=== PATIENT | female | born 1965 | race Caucasian/White ===

== ENCOUNTER → 2019-04-20 | Outpatient (CLI) | payer BC ==
[~2019-04-20] MED LIST: AZULFIDINE500 MG PO; DILTIAZEM ER180 M2 PO; HYDRALAZINE 5050 MG PO; LIPITOR40 MG PO; LISINOPRIL2.5 MG PO; MAGNESIUM250 M1 PO; METFORMIN HCL500 M3 PO; PLAVIX 75 MG TA75 MG PO; PRADAXA150 MG PO; RESTORIL15 M1 PO; SYNTHROID125 MC1 PO; TIKOSYN250 MCG PO; TRAMADOL 50 MG50 MG PO; TRULICITY0.75 MG/0. SUBQ; ZOFRAN4 MG PO
[2019-04-20 09:56] LABS: HEMATOCRIT 38.1 % (37.0-47.0); HEMOGLOBIN 12.2 gm/dL (12.0-15.0); MCH 25.7 pg (26.0-34.0); MCHC 32.1 g/dL (28.0-37.0); MCV 80.1 fL (80.0-100.0); RBC 4.76 mil/uL (4.20-5.00); RDW 15.3 % (10.5-14.5); WBC 6.7 thou/uL (4.0-11.0)
[2019-04-20 10:10] LABS: ALBUMIN 4.1 g/dL (3.4-5.0); CALCIUM 9.6 mg/dL (8.5-10.1); CREATININE 1.3 mg/dL (0.6-1.0); POTASSIUM 3.9 mmol/L (3.5-5.1); TOTAL BILIRUBIN 0.3 mg/dL (<0.1-1.0); TOTAL PROTEIN 7.9 g/dL (6.4-8.2)
== END ==
LOC: CAT 09:15
PROVIDERS: Internal Medicine Cardiovascular Disease
DX: I48.91 Unspecified atrial fibrillation (principal); I25.10 Atherosclerotic heart disease of native coronary artery without angina pectoris; N28.1 Cyst of kidney, acquired; M47.814 Spondylosis without myelopathy or radiculopathy, thoracic region; K76.89 Other specified diseases of liver; Z90.49 Acquired absence of other specified parts of digestive tract

== ENCOUNTER 2019-04-27 06:22 | Observation (INO) | payer BC ==
[~2019-04-27] VITALS: Ht 172.7 cm; Wt 78.7 kg
[2019-04-27] VITALS (8 sets, daily range): BP systolic 119–172; BP diastolic 71–101
[2019-04-27] MEDS ORDERED: PRADAXA150 MG PO (06:57)
[2019-04-27] MEDS ORDERED: TIKOSYN250 MCG PO (06:58)
[2019-04-27] MEDS ORDERED: PLAVIX 75 MG TA75 MG PO (06:59)
[2019-04-27] MEDS ORDERED: LISINOPRIL2.5 MG PO (06:59)
[2019-04-27] MEDS ORDERED: HYDRALAZINE 5050 MG PO (07:01)
[2019-04-27] MEDS ORDERED: MAGNESIUM250 M1 PO (07:01)
[2019-04-27] MEDS ORDERED: DILTIAZEM ER180 M2 PO (07:02)
[2019-04-27] MEDS ORDERED: SYNTHROID125 MC1 PO (07:03)
[2019-04-27] MEDS ORDERED: LIPITOR40 MG PO (07:03)
[2019-04-27] MEDS ORDERED: TRULICITY0.75 MG/0. SUBQ (07:04)
[2019-04-27] MEDS ORDERED: METFORMIN HCL500 M3 PO (07:05)
[2019-04-27] MEDS ORDERED: AZULFIDINE500 MG PO (07:06)
[2019-04-27] MEDS ORDERED: ZOFRAN4 MG PO (07:06)
[2019-04-27] MEDS ORDERED: TRAMADOL 50 MG50 MG PO (07:07)
[2019-04-27] MEDS ORDERED: RESTORIL15 M1 PO (07:08)
[2019-04-27 07:13] LABS: ABSOLUTE NEUTROPHILS 3.7 thou/uL (1.4-8.2); BASOPHILS 0.7 % (0.0-2.0); EOSINOPHILS 2.5 % (0.0-3.0); HEMATOCRIT 34.4 % (37.0-47.0); HEMOGLOBIN 11.1 gm/dL (12.0-15.0); LYMPHOCYTES 32.2 % (24.0-44.0); MCH 25.9 pg (26.0-34.0); MCHC 32.4 g/dL (28.0-37.0); MCV 79.9 fL (80.0-100.0); MONOCYTES 8.7 % (1.0-8.0); PLATELET COUNT 343 thou/uL (150-400); POLYS 55.9 % (36.0-66.0); RDW 15.6 % (10.5-14.5); WBC 6.7 thou/uL (4.0-11.0)
[2019-04-27 07:26] LABS: ALBUMIN 3.7 g/dL (3.4-5.0); CALCIUM 9.1 mg/dL (8.5-10.1); CREATININE 1.3 mg/dL (0.6-1.0); PROTIME 10.5 Seconds (9.3-11.4); TOTAL BILIRUBIN 0.3 mg/dL (<0.1-1.0); TOTAL PROTEIN 7.1 g/dL (6.4-8.2)
[2019-04-27 07:30] LABS: POTASSIUM 4.1 mmol/L (3.5-5.1)
[2019-04-27 07:45] LABS: APTT 18.9 Seconds (24.5-32.8)
--- NOTE | 2019-04-27 08:48 | EKG ---
[place] [address] [facility] [place] [address] ELECTROCARDIOGRAM REPORT Name: VERNA CARDOSO Room #: [facility] [id number] Admission: 04/27/19 Attend Phys: Omkar Martin MD Discharge: Date of : 67 Report #: [id number] THIS REPORT FOR: //name// [facility] Test Date: 2019-04-27 Test Time: 07:10:16 Pat Name: VERNA CARDOSO Department: Room: Gender: F Music Director: MAI : 1965 Requested By: Omkar Martin Order Number: [id number] MD: Giovany Jeong Measurements Intervals [place] Rate: 81 P: 50 ID: [id number] QRS: -18 QRSD: 88 T: 70 QT: 380 QTc: 441 Interpretive Statements Sinus rhythm Poor R wave progression No previous ECG available for comparison Electronically Signed On 04-27-2019 8:48:25 CDT by Giovany Jeong [email or web address] <ELECTRONICALLY SIGNED> By: Giovany Jeong MD, [facility] 04/27/19 0848 0710 0710 Giovany Jeong MD, FACC /EPI
--- NOTE | 2019-04-27 19:20 | NUR ---
PT ADMITED FROM [facility]. ALERT AND ORIENTED. ADMISSION HX AND ASSESSMENT COMPLETED. RIGHT GROIN INCISION C/D/I. NO HEMATOMA NOTED. POSTOP INSTRUCTIONS GIVEN TO PT. PT VERBERLISED UNDERSTANDING. NO CARDIAC OR RESPIRATORY DISTRESS NOTED. WILL CONTINUE TO MONITOR.
[2019-04-28] VITALS: BP 119/71; BP 126/72
[2019-04-28 04:00] VITALS: BP 119/71
[2019-04-28 04:25] VITALS: BP 148/89
--- NOTE | 2019-04-28 05:09 | NUR ---
SHIFT NOTE: PATIENT ALERT AND ORIENTED AND ABLE TO COMMUNICATE NEEDS. PAIN ASSESSMENT AND TREATMENT PER THE ORDER WITH EFFECT. NOTED WITH BACK AND NECK DISCOMFORT.VITAL SIGN AND NEUROVASCULAR CHECKS TO THE PROCEDURE SITE IN THE RIGHT GROIN WITH CONCERN. SITE DRESSING APPEAR CLEAN,DRY AND INTACT WITH NO HEMATOMA. DENIES OTHER CONCERN OR COMPLAINT. WILL CONTINUE WITH CURRENT PLAN OF CARE AND TO MONITOR.
[2019-04-28 05:32] LABS: CALCIUM 8.3 mg/dL (8.5-10.1); CREATININE 1.2 mg/dL (0.6-1.0); POTASSIUM 3.7 mmol/L (3.5-5.1)
[2019-04-28 08:00] VITALS: BP 157/86
[2019-04-28 10:37] VITALS: BP 153/94
[2019-04-28 10:38] VITALS: BP 153/94
--- NOTE | 2019-04-28 11:07 | NUR ---
ASSESSMENT CHARTED. PT ALERT AND ORIENTED. VSS. DENIED HAVING PAIN OR DISCOMFORT. SR ON TELE. RIGHT GROIN INCISION C/D/I. NO HEMATOMA NOTED. ORDERS GIVEN TO DISCHARGE PT TO HOME. DISCHARGE INSTRUCTIONS GIVEN TO PT. PT VERBERLISED UNDERSTANDING.
--- NOTE | 2019-05-04 12:27 | P ---
[facility] [place] [address] PROCEDURE REPORT Name: VERNA CARDOSO Room #: 204-P [facility] Tristan Owens#: [id number] Admission: 04/27/19 Attend Phys: Omkar Martin MD Discharge: 04/28/19 Date of : 67 Report #: [id number] THIS REPORT FOR: //name// CC: FAM unknown Omkar JUNE PREOPERATIVE DIAGNOSIS: Atrial fibrillation. POSTOPERATIVE DIAGNOSIS: Atrial fibrillation. HISTORY: The patient is a 53-year-old with history of AFib, here for ablation. PROCEDURES PERFORMED: 1. Atrial fibrillation ablation, CPT code 62697. 2. Program stimulation and pacing after IV drug infusion, CPT code 78562. 3. 3D mapping, CPT code 71590. 4. Intracardiac echo, CPT code 69091. ANESTHESIA: The patient underwent general anesthesia with no anesthesia related complications. DESCRIPTION OF PROCEDURE: The patient underwent informed consent. We discussed the details of the procedure including the risks, which include but not limited to bleeding, vascular damage, cardiac perforation, stroke and IA. She understood these risks and is willing to proceed. The patient was brought to EP laboratory in fasting and sedated state and prepped and draped in a sterile fashion. I obtained access in the right femoral vein x 3, placing an 8, 9 and 7-Khmer short sheath using the modified Seldinger technique. Next, under fluoroscopy, I placed a decapolar catheter into the coronary sinus. Of note, I had difficulty getting the decapolar completely into the CS, I was only able to get half of the decapolar into the CS. Using intracardiac ultrasound, I created a 3D geometry of the left atrium with evidence of a left common with a left superior and left inferior branch. There was a right superior and right inferior pulmonary vein with standard anatomic features. Next, the patient was systemically heparinized and a transseptal was performed using an SL1 sheath and a [place] needle. The transseptal was straightforward. I was able to advance the SL1 to the left atrium and then exchanged it over for the cryo sheath. I had to spend some time slowly clocking the cryo sheath to cross into the left atrium, but eventually crossed over. Next, I used a Lasso catheter and created a 3D voltage map of the left atrium. All veins appeared to show activity. Next, I started by isolating the left superior pulmonary vein. I performed a 4-minute freeze, which resulted in isolation within 73 seconds. However, the vein then reconnected. I performed a second 4-minute freeze and the vein isolated within 50 seconds, but after this freeze, it also reconnected. I think there is likely very close proximity [address] [address] PROCEDURE REPORT Name: CARDOSOVERNA Room #: 204-P BRANDY Owens#: [id number] Admission: 04/27/19 Attend Phys: Omkar Martin MD Discharge: 04/28/19 Date of : 67 Report #: [id number] between the left superior and left inferior pulmonary branch and I was likely missing something at the jose aspect of the vein. I therefore decided to move down to the left inferior pulmonary vein. I performed an initial 4-minute freeze, which did not result in isolation. I performed a second freeze of 300 seconds' duration and the vein isolated within 100 seconds. The vein did reconnect during the following phase. I then performed a third freeze and placed the balloon somewhat more superiorly as the first 2 freezes were more inferiorly oriented. This third freeze was likely at the jose between the left superior and left inferior pulmonary veins. During this freeze, the inferior vein isolated within 53 seconds. This first freeze was of 4 minutes' duration. I then interrogated the left superior pulmonary vein and now this was isolated as well. I then turned my attention to the right-sided veins. Phrenic nerve pacing was performed using the decapolar catheter placed at the subclavian vessel. I performed two 3-minute freezes, all with good temperatures at -50 degrees. This vein was noted to be isolated post ablation. I then turned my attention to the right inferior pulmonary vein. I performed a 4-minute freeze, which resulted in isolation in 40 seconds and a second freeze of 180 seconds duration. Next, I removed the cryoballoon from the left atrium and again placed the Lasso catheter back into the left atrium and created a detailed voltage map. All veins were isolated. There were some large signals noted in the left superior pulmonary vein, which were far field left atrial appendage signals and this clearly did not capture with pacing around the Lasso. Our voltage map showed that we had created a wide circumferential ablation of all pulmonary veins. POST-ABLATION TESTING: Post ablation, the patient remained in sinus rhythm. The AH interval was 85 milliseconds, HP interval was 38 milliseconds. AV block was noted at 330 milliseconds and atrial ERP was noted at 280 milliseconds at a [address] cycle length. Isoproterenol infusion was performed at 2 mcg per minute. AV block was noted at 260 milliseconds and atrial ERP was noted at 230 milliseconds at [address] cycle length. Aggressive atrial burst pacing down to 260 milliseconds was performed and I could not induce AFib, atrial flutter, or any forms of SVT. As such, the procedure was concluded. Using intracardiac ultrasound, I verified there was no pericardial effusion. Once the ACT was within acceptable range after receiving protamine, catheters and sheaths were pulled. Hemostasis was obtained. A [id number] suture was deployed at the right groin region to promote hemostasis. CONCLUSIONS: 1. Successful AFib ablation with isolation of the pulmonary veins including the [facility] [address] [place] [address] PROCEDURE REPORT Name: VERNA CARDOSO Room #: 204-P [facility] Tristan Owens#: [id number] Admission: 04/27/19 Attend Phys: Omkar Martin MD Discharge: 04/28/19 Date of : 67 Report #: [id number] left common ostium. 2. Normal EP study with no inducible arrhythmias. <ELECTRONICALLY SIGNED> By: Omkar Martin MD 05/04/19 1227 0754 1854 Omkar Martin MD /nt
== END 2019-04-28 11:09 | disposition home or self-care (01) ==
LOC: CATH → 2N 16:56 → ENTRNSPT 04-28 11:00 → EDTRNSPTSTS 04-28 11:03 → 2N 04-28 11:09
PROVIDERS: Nurse Practitioner; ADMIT Internal Medicine Cardiovascular Disease
DX: I48.0 Paroxysmal atrial fibrillation (principal); I10 Essential (primary) hypertension; E11.9 Type 2 diabetes mellitus without complications; E78.5 Hyperlipidemia, unspecified; Z79.899 Other long term (current) drug therapy; Z79.82 Long term (current) use of aspirin
CPT/HCPCS: 62110; 62900; 65020; 65040; 70005

== ENCOUNTER 2019-08-23 06:27 | Outpatient (CLI) | payer BC ==
[2019-08-23] VITALS (13 sets, daily range): BP systolic 134–169; BP diastolic 77–101
[~2019-08-23] VITALS: Ht 175.3 cm; Wt 71.0 kg
--- NOTE | ~2019-08-23 | P ---
[facility] [place] [address] PROCEDURE REPORT Name: VERNA CARDOSO Room #: DEP EUGENIA Owens#: [id number] Admission: 08/23/19 Attend Phys: Omkar Martin MD Discharge: 08/24/19 Date of : 67 Report #: [id number] THIS REPORT FOR: cc: MEDARDO JUNE DR Physician not on staff Omkar Martin MD ~ CC: Omkar Martin Physician staff MEDARDO JUNE PREOPERATIVE DIAGNOSIS: Atrial fibrillation, atrial flutter. POSTOPERATIVE DIAGNOSIS: Atrial fibrillation, atrial flutter. PROCEDURES PERFORMED: 1. Atrial fibrillation ablation, CPT code 24223. 2. 3D mapping, CPT code 21776. 3. Arterial line placement, CPT code 73363. 4. Intracardiac echo, CPT code 71130. 5. Second pathway ablation, CPT code 37686. HISTORY: The patient is a 54-year-old female with history of AFib, status post prior ablation with clinical recurrence of AFib. She is here for repeat ablation. ANESTHESIA: The patient underwent general anesthesia with no anesthesia related complications. DESCRIPTION OF PROCEDURE: The patient underwent informed consent. We discussed the details of the procedure including but not limited to bleeding, vascular damage, stroke, [place] as well as damage to the [place] conduction system requiring permanent pacemaker. She understood these risks and is willing to proceed. The patient was brought to EP laboratory in fasting and sedated state and prepped and draped in a sterile fashion. I injected lidocaine to the bilateral groin regions, obtained access to the right femoral vein x 3, placing 2, 8 and 9-Greenlandic short sheath and in the left femoral vein, I placed a 7-Greenland[place] short sheath. In the left femoral artery, I placed a 5-Greenland[place] short sheath for arterial blood pressure monitoring. At baseline, the patient was in sinus rhythm with a sinus cycle length of 720 milliseconds, CO interval 120 milliseconds, QRS duration 80 milliseconds, QT interval 466 milliseconds. Next, the patient was systemically heparinized and a transseptal was performed. I was able to cross the interatrial septum using my [place] needle and the tip of the SL1 sheath, but I could not cross over to the left atrium. Therefore, I placed a Powerflex Pro 6 mm balloon into the septum and I dilated the septum and then I was able to advance the SL1 sheath and exchanged for my Agilis sheath. Next, I created a voltage map using a PentaRay catheter. This showed that all veins [facility] [address] [place] [address] PROCEDURE REPORT Name: CARDOSOVERNA Room #: DEP [facility]#: [id number] Admission: 08/23/19 Attend Phys: Omkar Martin MD Discharge: 08/24/19 Date of : 67 Report #: [id number] remained isolated except the left superior pulmonary vein. There was a small area of reconnection at the anterior aspect of the vein. Therefore, I removed this catheter and placed a SmartTouch ThermoCool ablation catheter and performed extensive ablation along the ridge between the left superior pulmonary vein in the left atrial appendage. I rechecked this and it remained connected. Therefore, I performed a second transseptal with the SL1 sheath and placed the Agilis in the left superior pulmonary vein and then I was able to take the ablation catheter slightly inside the vein where the signals persisted. Ablation at this site resulted in quick termination of connection of the vein. I performed additional ablation along the posterior aspect of the veins on both the left and right-sided veins to ensure that these remained isolated. I then moved to the right atrium for atrial flutter ablation. Cavotricuspid isthmus dependent flutter ablation. Next, I performed differential pacing prior to ablation. The transisthmus conduction time was 70 milliseconds pacing both medial and lateral to the line where I would be ablating. I performed ablation at 35 [address]jo and performed 2 or 3 lines and I still did not have block. Based on intracardiac ultrasound, there was a large pouch and I placed the ablation catheter into this and there were some small signals down here. I performed extensive ablation within this pouch, which was in the mid third of the isthmus. After ablating here, there was now evidence of bidirectional block with transisthmus conduction time of 140 milliseconds. As such, the procedure was concluded. The patient remained in sinus rhythm. The AH interval was 85 milliseconds, and HV interval was noted to be 42 milliseconds. As such, the patient received systemic protamine and once the ACT was within acceptable range, catheters and sheaths were pulled and hemostasis was obtained. The patient awoke neurologically and hemodynamically intact. No complications and no significant bleeding. CONCLUSIONS: 1. Successful re-isolation of the left superior pulmonary vein. 2. Additional ablation along the posterior aspects of the right and left veins. 3. Successful atrial flutter ablation with evidence of bidirectional block. By: 1302 1838 Omkar Martin MD /nt
[2019-08-23] MEDS ORDERED: ELIQUIS5 MG PO (07:34)
[2019-08-23] MEDS ORDERED: LOPRESSOR50 MG PO (07:34)
[2019-08-23] MEDS ORDERED: PEPCID20 MG PO (07:37)
[2019-08-23 07:51] LABS: ABSOLUTE NEUTROPHILS 2.3 thou/uL (1.4-8.2); BASOPHILS 0.5 % (0.0-2.0); EOSINOPHILS 1.9 % (0.0-3.0); HEMATOCRIT 30.4 % (37.0-47.0); HEMOGLOBIN 9.5 gm/dL (12.0-15.0); LYMPHOCYTES 39.9 % (24.0-44.0); MCH 22.1 pg (26.0-34.0); MCHC 31.3 g/dL (28.0-37.0); MCV 70.5 fL (80.0-100.0); MONOCYTES 11.5 % (1.0-8.0); PLATELET COUNT 382 thou/uL (150-400); POLYS 46.2 % (36.0-66.0); RBC 4.32 mil/uL (4.20-5.00); RDW 16.7 % (10.5-14.5); WBC 4.9 thou/uL (4.0-11.0)
[2019-08-23 08:02] LABS: APTT 24.8 Seconds (24.5-32.8); CALCIUM 9.7 mg/dL (8.5-10.1); CREATININE 1.1 mg/dL (0.6-1.0); POTASSIUM 3.8 mmol/L (3.5-5.1); PROTIME 10.1 Seconds (9.3-11.4)
[2019-08-23 08:09] LABS: ALBUMIN 3.7 g/dL (3.4-5.0); TOTAL BILIRUBIN 0.2 mg/dL (<0.1-1.0); TOTAL PROTEIN 7.5 g/dL (6.4-8.2)
[2019-08-23 08:53] LABS: ANISOCYTOSIS 1+; HYPOCHROMASIA 1+; PLATELET ESTIMATE NORMAL
--- NOTE | 2019-08-23 16:36 | NUR ---
ASSUMED CARE OF PT AT APPROX 1445 FROM EP LAB POST AFIB/FLUTTER ABLATION. ADMISSION AND ORDERS COMPLETE. PT A&OX4. PT C/O PAIN IN GROIN SITES, HEADACHE AND CHEST PRESSURE. CONTACTED [facility]'S OFFICE, NO RESPONSE AT THIS TIME. R AND L GROIN SITES CDI AND REMAIN SOFT, WITH NO HEMATOMA OR BRUISING. PT CURRENTLY IN SINUS RHYTHM. WILL CONTINUE TO MONITOR AND FOLLOW POC.
--- NOTE | 2019-08-23 20:17 | NUR ---
ASSUMED CARE OF PT AT APPOX 1430 FROM EP LAB POST AFIB/AFLUTTER ABLATION. ADMISSION AND ORDERS COMPETE. PT A&OX4. R AND L GROIN SITES CDI AND REMAIN SOFT AND WITHOUT HEMATOMA. PT C/O GROIN SITE PAIN, CHEST PRESSURE AND HEADACHE. PT PREFERRED TYLENOL FOR THIS PAIN. AT APPROX 1800 PT C/O SHARP PAIN SHOOTING DOWN LEFT LEG, TOES FEELING NUMB. L PEDAL PULSE DIFFICULT TO FIND. PAGED DR. ANNE. APPROX 1815 PT REPORTED SEVERE DIAPHORESIS, CHEST PAIN. BP AND HR WERE ELEVATED. CALLED RAPID. NURSES RESPONDING HELPED WITH ADDITIONAL ASSESMENT, BS 275. PAGED DAYANA AGAIN. AT APPROX 1860 PT REPORTED FEELING A BIT BETTER, SEVERE PAIN WAS GONE, BP WAS GOING DOWN, HR STILL ELEVATED. DR. GALLO RETURNED PAGE SAID TO GIVEN PT STRONGER PAIN MEDS, AND WOULD MAKE AVAILABLE ANXIETY MEDS IF NEEDED.
[2019-08-24 00:23] VITALS: BP 126/74
[2019-08-24 05:06] VITALS: BP 135/79
--- NOTE | 2019-08-24 05:20 | NUR ---
ASSUMED PT CARE AT 1900. PT IS ALERT AND ORIENTED WITH NO SIGN OF DISTRESS NOTED IN PT. PT IS LAYING IN BED COMFORTABLY. BILATERAL GROIN SITE INTACT. NO SIGN OF HEMATOMA OR BLEEDING NOTED. MILD PAIN REPORTED. ASSESSMENT COMPLETED AND DOCUMENTED. PT IS STABLE. REPORTED MILD HEADACHE. SCHEDULED MEDS ADMINISTERED TO PT. CONTINUE TO MONITOR PT. DENIES ANY FURTHER NEEDS AT THIS TIME.
[2019-08-24 07:30] VITALS: BP 139/71
[2019-08-24 09:28] VITALS: BP 139/71
--- NOTE | 2019-08-24 11:01 | NUR ---
REPORT RECEIVED FROM SAMMY BETANCUR AT 0710, PT ASSESSED, STATED "NO" WHEN ASKED IF HAVING PAIN, RESTING IN BED, VANEGAS REMOVED, PT UP TO BATHROOM WITH STEADY GAIT, URINATED IN TOILET, IV REMOVED, D/C INSTRUCTIONS REVIEWED, PT VERBALIZED UNDERSTANDING, TELE DC'D, PT DRESSED, LEFT WITH PARENTS AND TOOK ALL OF HER BELONGINGS.
--- NOTE | 2019-09-01 11:07 | D ---
[facility] [place] [address] DISCHARGE SUMMARY Name: CARDOSOVERNA Room #: DEP EUGENIA Owens#: [id number] Admission: 08/23/19 Attend Phys: Omkar Martin MD Discharge: 08/24/19 Date of : 67 Report #: [id number] THIS REPORT FOR: cc: MEDARDO JUNE DR Physician not on staff Omkar Martin MD ~ THIS REPORT FOR: //name// CC: Omkar Martin Physician staff MEDARDO JUNE DISCHARGE DIAGNOSIS: Atrial fibrillation. PROCEDURES PERFORMED: AFib ablation, atrial flutter ablation. HISTORY: The patient is a 54-year-old female with history of atrial fibrillation, on Tikosyn, who is status post initial ablation about 3 months ago. Despite this ablation, she continued to have frequent breakthrough episodes of AFib. Therefore, she is here for repeat ablation. She was found to have reconnection of the left superior pulmonary vein along the anterior ridge of the vein. Actually isolating this area was somewhat challenging, but eventually the vein was isolated with entrance and exit block. I performed additional ablation along the posterior aspects of the veins and also performed atrial flutter ablation with evidence of bidirectional block. HOSPITAL COURSE: The patient was monitored in the CCU overnight and did well. On the day of discharge, she denied any fevers or chills, chest pain, shortness of breath, PND, orthopnea or groin discomfort. PHYSICAL EXAMINATION: GENERAL: No acute distress. HEENT: Oropharynx clear. NECK: Supple, with no thyromegaly. HEART: Regular rate and rhythm with no murmurs, rubs or gallops. LUNGS: Clear to auscultation bilaterally. ABDOMEN: Soft, nontender. EXTREMITIES: Bilateral groins, no significant bruising or hematoma. TELEMETRY: She remained in sinus rhythm throughout the night. As such, she was deemed stable for discharge home. She will be discharged on her home medications including anticoagulation and Tikosyn therapy and I will see her back in 3 months. [facility] [address] [place] [address] DISCHARGE SUMMARY Name: VERNA CARDOSO Room #: DEP EUGENIA Owens#: [id number] Admission: 08/23/19 Attend Phys: Omkar Martin MD Discharge: 08/24/19 Date of : 67 Report #: [id number] Discharge instructions were reviewed. <ELECTRONICALLY SIGNED> By: Omkar Martin MD 09/01/19 1107 0822 0845 Omkar Martin MD /nt
== END 2019-08-24 10:54 | disposition home or self-care (01) ==
LOC: CATH 06:27 → 2N 15:02 → CATH 15:19 → ENTRNSPT 08-24 10:22 → EDTRNSPTSTS 08-24 10:51 → CATH 08-24 10:54
PROVIDERS: Internal Medicine Cardiovascular Disease
DX: I48.91 Unspecified atrial fibrillation (principal); I48.92 Unspecified atrial flutter; I10 Essential (primary) hypertension; E11.9 Type 2 diabetes mellitus without complications; I25.10 Atherosclerotic heart disease of native coronary artery without angina pectoris; E78.5 Hyperlipidemia, unspecified; K21.9 Gastro-esophageal reflux disease without esophagitis; Z98.890 Other specified postprocedural states; Z79.899 Other long term (current) drug therapy; Z79.01 Long term (current) use of anticoagulants; Z88.8 Allergy status to other drugs, medicaments and biological substances
CPT/HCPCS: 50010; 65020; 65040

== ENCOUNTER → 2019-09-06 | Outpatient (CLI) | payer BC ==
[2019-09-06] VITALS (7 sets, daily range): BP systolic 138–183; BP diastolic 69–92
[~2019-09-06] MED LIST changes: +ELIQUIS5 MG PO; +LOPRESSOR50 MG PO; +PEPCID20 MG PO
== END ==
LOC: SJCVCIMAG 10:43
PROVIDERS: ATTEND Internal Medicine Cardiovascular Disease
DX: I71.4 Abdominal aortic aneurysm, without rupture (principal); R10.32 Left lower quadrant pain; R19.09 Other intra-abdominal and pelvic swelling, mass and lump; I72.9 Aneurysm of unspecified site

== ENCOUNTER → 2019-09-07 | Outpatient (CLI) | payer BC | LOC: SJCVCIMAG 12:19 | DX: Z03.89 Encounter for observation for other suspected diseases and conditions ruled out (principal) ==